=== PATIENT | male | born 1965 | race American Indian/Alaskan Native ===

== ENCOUNTER 2021-04-16 00:09 | Emergency (ER) | payer BC ==
[2021-04-16 00:15] VITALS: BP 134/87
[2021-04-16] MEDS ORDERED: IBUPROFEN 800 MG TAB PO ONE (01:01)
[2021-04-16] MEDS ORDERED: LIDOCAINE (1%) 10 MG/1 ML VIAL 20 ML MDV INFILTRATI ONE (01:01)
[2021-04-16] MEDS: TETANUS,DIPH,PERTUSS(ACELL) VACCINE 0.5 ML SYRINGE IM ONE ×2 (02:16→02:19)
[2021-04-16] MEDS ORDERED: oxyCODONE /ACETAMINOPHEN 5-325MG TAB PO ONE (06:52)
[2021-04-16] MEDS ORDERED: NEOMY 3.5 MG/BACIT 400 UNITS/POLY B 5000 UNITS/GM OINT PACKET TP ONE (06:52)
[2021-04-16] MEDS ORDERED: ONDANSETRON 4 MG ODT TAB PO ONE (06:53)
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
== END 2021-04-16 07:57 | disposition home or self-care (01) ==
LOC: ED 00:09
DX: S61.411A Laceration without foreign body of right hand, initial encounter (principal); T23.201A Burn of second degree of right hand, unspecified site, initial encounter; T23.202A Burn of second degree of left hand, unspecified site, initial encounter; T23.252A Burn of second degree of left palm, initial encounter; X08.8XXA Exposure to other specified smoke, fire and flames, initial encounter; Y93.89 Activity, other specified; Y92.89 Other specified places as the place of occurrence of the external cause; Y99.8 Other external cause status
CPT/HCPCS: 90715; 99282; J3490; Q0162